=== PATIENT | female | born 1995 | race Caucasian/White ===

== ENCOUNTER 2019-08-18 09:46 | Outpatient (CLI) | payer OTHER ==
--- NOTE | 2019-08-18 13:07 | ULT ---
OB ULTRASOUND COMPLETE: Date: 08/18/2019 HISTORY: Anatomy. Normal second trimester evaluation. FINDINGS: Single, viable intrauterine fetus is noted in breech presentation. The placenta is anterior. Amniotic fluid is within normal limits. heart rate of 146 bpm. Cervical length 3.8 cm. Anatomy: Visualized brain, 4 chamber heart, 3 vessel cord, stomach, bladder, kidneys, spine, and extremi ty regions are unremarkable. Biometry: BPD: 4.7 cm, 20 weeks/2 days HC: 18.3 cm, 20 weeks/5 days AC: 15.1 cm, 20 weeks/3 days FL: 3.4 cm, 20 weeks/4 days IMPRESSION: 1. Single, viable intrauterine fetus at 20 weeks and 4 days. 2. ANGELINE of 01/01/2020. 3. weight of 352 gm. POS: [facility]
== END 2019-08-18 09:47 | disposition home or self-care (01) ==
LOC: BICULT 09:46
PROVIDERS: ATTEND Family Medicine
DX: Z34.82 Encounter for supervision of other normal pregnancy, second trimester (principal); Z3A.20 20 weeks gestation of pregnancy
CPT/HCPCS: 76805

== ENCOUNTER 2019-11-22 11:25 | Day surgery (SDC) | payer OTHER ==
[2019-11-22 11:56] VITALS: BMI 32.3
[2019-11-22 12:18] VITALS: BP 128/72; TEMP 98.5
--- NOTE | 2019-11-22 13:06 | ULT ---
ULTRASOUND BIOPHYSICAL PROFILE: HISTORY: distress FINDINGS: A single live intrauterine gestation is seen. heart rate:152bpm OBED: 5.3 cm Placenta: Anterior without placenta previa OB biophysical profile: tone: 2 breathin movements: 2 Amniotic fluid: 2 IMPRESSION: 1. The ultrasound biophysical profile score is 8 out of 8. 2. Oligohydramnios.
== END 2019-11-22 15:15 | disposition home health service (06) ==
LOC: L&D/OP 11:25
PROVIDERS: ATTEND Family Medicine
DX: O41.00X0 Oligohydramnios, unspecified trimester, not applicable or unspecified (principal); Z3A.00 Weeks of gestation of pregnancy not specified
CPT/HCPCS: 76819; 99282

== ENCOUNTER 2019-11-29 09:23 | Outpatient (CLI) | payer OTHER ==
[2019-11-30 12:10] LABS: SARS-CoV-2 MS2 Positive; SARS-CoV-2 N Gene Negative; SARS-CoV-2 S Gene Negative; SARS-CoV-2 by NAA Not Detected (NotDetected); SARS-CoV-2 orf1ab Negative
== END 2019-11-29 09:24 | disposition home or self-care (01) ==
LOC: LABSCS 09:23
PROVIDERS: ATTEND Family Medicine
DX: Z01.812 Encounter for preprocedural laboratory examination (principal); Z11.59 Encounter for screening for other viral diseases
CPT/HCPCS: 87635; U0003

== ENCOUNTER 2019-12-01 19:30 | Inpatient (IN) | payer OTHER ==
[~2019-12-01 19:30] MED LIST: Bupivacaine/Epinephrine 0.25% 30 ML VIAL ONE
[2019-12-01 20:49] VITALS: BMI 32.5
[2019-12-01] MEDS ORDERED: hydrALAZINE 20 MG/ML VIAL SLOW IVP PRN (21:09)
[2019-12-01] MEDS ORDERED: Ondansetron PF 4 MG/2 ML Vial IVP PRN (21:09)
[2019-12-01] MEDS ORDERED: Carboprost 250 MCG/ML AMP IM PRN (21:09)
[2019-12-01] MEDS ORDERED: Methylergonovine 0.2 MG/ML VIAL IM PRN (21:09)
[2019-12-01] MEDS ORDERED: HYDROcodone/Acetaminophen 5/325 mg Tablet PO PRN (21:09)
[2019-12-01] MEDS ORDERED: Misoprostol 200 MCG TAB PR PRN (21:09)
[2019-12-01] MEDS ORDERED: Lidocaine 1% (PF) 30 ML VIAL SC PRN (21:09)
[2019-12-01] MEDS ORDERED: Promethazine HCl 25 MG/ML VIAL IM PRN (21:09)
[2019-12-01] MEDS ORDERED: Diphenoxylate HCl/Atropine Tablet PO PRN (21:09)
[2019-12-01] MEDS ORDERED: Ibuprofen 800 MG TAB PO PRN (21:09)
[2019-12-01] MEDS ORDERED: Butorphanol Tartrate 1 MG/ML VIAL SLOW IVP PRN (21:09)
[2019-12-01] MEDS ORDERED: NS w/ Oxytocin 10 units 500 ML IV SCH ×2 (21:15)
[2019-12-01] MEDS: Lactated Ringer's 1,000 ML IV SCH ×2 (21:54→22:49)
[2019-12-01] MEDS: Misoprostol 100 MCG TAB PO SCH (21:54)
[2019-12-01 22:00] LABS: Mean Corpuscular HGB CONC 32.4 g/dL (32.0-36.0); Mean Corpuscular Hemoglobin 25.1 pg (27.0-31.0); Mean Corpuscular Volume 77.6 fL (78.0-98.0); Mean Platelet Volume 7.8 fL (7.4-10.4); Platelet Count 496 thou/uL (130-400); RBC Distribution Width 14.8 % (11.5-14.5); Red Blood Cell (RBC) Count 3.98 mill/uL (4.20-5.40)
[2019-12-01 22:28] LABS: Syphilis Antibody Nonreactive (Nonreactive); Syphilis Antibody Index 0.04 S/CO (<1.00 Non-Reactive)
[2019-12-01 23:05] LABS: HBSAg Index 0.12 S/CO (0-0.99); Hep B Surf Ag Non-Reactive S/CO (NonReactive)
[2019-12-02] MEDS: Misoprostol 100 MCG TAB PO SCH ×2 (01:15→16:29)
[2019-12-02] MEDS ORDERED: Fentanyl 4 mcg/Bup 0.1% Cadd 100 ML ONE (08:39)
[2019-12-02] MEDS ORDERED: diphenhydrAMINE 50 MG/ML VIAL IVP PRN (09:39)
[2019-12-02] MEDS ORDERED: Acetaminophen 325 MG TAB PO PRN (09:39)
[2019-12-02] MEDS ORDERED: Ondansetron PF 4 MG/2 ML Vial IVP PRN ×2 (09:39→16:13)
[2019-12-02] MEDS ORDERED: Promethazine HCl 25 MG/ML VIAL IM PRN (09:39)
[2019-12-02] MEDS ORDERED: EPHEDRINE 25 MG/5 ML SYRINGE SLOW IVP PRN (09:39)
[2019-12-02] MEDS ORDERED: Lactated Ringer's 500 ML IV PRN (09:39)
[2019-12-02] MEDS ORDERED: Naloxone HCl 0.4 mg/ml Vial IVP PRN ×2 (09:39)
[2019-12-02] MEDS ORDERED: Communication Order-Pharmacy FS PRN (09:45)
[2019-12-02] MEDS ORDERED: Fentanyl 4 mcg/Bupivacaine 0.1% Cassette 100 ML EPIDURAL SCH (09:45)
[2019-12-02] MEDS: Lactated Ringer's 1,000 ML IV SCH (10:05)
[2019-12-02] MEDS: NS / Oxytocin 40 units/1000ml 1,000 ML IV PRN ×2 (13:05→14:30)
[2019-12-02] MEDS ORDERED: HYDROcodone/Acetaminophen 5/325 mg Tablet PO PRN (16:13)
[2019-12-02] MEDS ORDERED: Milk Of Magnesia 30 ML UDCUP PO PRN (16:13)
[2019-12-02] MEDS ORDERED: Bisacodyl 10 MG SUPP PR PRN (16:13)
[2019-12-02] MEDS ORDERED: Lanolin Ointment 7 GM TUBE TOP PRN (16:13)
[2019-12-02] MEDS ORDERED: NS / Oxytocin 40 units/1000ml 1,000 ML IV SCH (16:13)
[2019-12-02] MEDS ORDERED: hydrALAZINE 20 MG/ML VIAL SLOW IVP PRN (16:13)
[2019-12-02] MEDS ORDERED: diphenhydrAMINE 25 MG CAP PO PRN (16:13)
[2019-12-02] MEDS: Ferrous Sulfate 325 MG TAB PO SCH (16:30)
[2019-12-02] MEDS: HYDROcodone/Acetaminophen 5/325 mg Tablet PO PRN (16:43)
[2019-12-02] MEDS: Ibuprofen 800 MG TAB PO SCH (22:25)
[2019-12-02] MEDS: Docusate Calcium (SURFAK) 240 MG CAP PO SCH (22:25)
[2019-12-03] MEDS: Ibuprofen 800 MG TAB PO SCH ×3 (05:20→21:59)
[2019-12-03] MEDS ORDERED: Prenatal Vitamin 1 TAB PO SCH (09:00)
[2019-12-03] MEDS ORDERED: Adacel (T-DAP) 0.5 ML SYRINGE IM ONE (09:00)
[2019-12-03] MEDS: Docusate Calcium (SURFAK) 240 MG CAP PO SCH ×2 (10:02→22:00)
[2019-12-03] MEDS: HYDROcodone/Acetaminophen 5/325 mg Tablet PO PRN (10:03)
[2019-12-03] MEDS: Ferrous Sulfate 325 MG TAB PO SCH ×2 (10:45→15:55)
[2019-12-03 20:15] VITALS: BP 127/71; TEMP 98.5
[2019-12-04] MEDS: Ibuprofen 800 MG TAB PO SCH (05:11)
[2019-12-04] MEDS: HYDROcodone/Acetaminophen 5/325 mg Tablet PO PRN (14:19)
[2019-12-04] MEDS: Ferrous Sulfate 325 MG TAB PO SCH (14:19)
== END 2019-12-04 16:28 | disposition home or self-care (01) | DRG 807 ==
LOC: L&D 19:57 → 3SE 12-02 16:24
PROVIDERS: ADMIT Family Medicine; ATTEND Family Medicine
PROC: 3E0234Z Introduction of Serum, Toxoid and Vaccine into Muscle, Percutaneous Approach (ICD-10-PCS; principal; 2019-12-01)
PROC: 10E0XZZ Delivery of Products of Conception, External Approach (ICD-10-PCS; 2019-12-01)
PROC: 10907ZC Drainage of Amniotic Fluid, Therapeutic from Products of Conception, Via Natural or Artificial Opening (ICD-10-PCS; 2019-12-01)
DX: O80 Encounter for full-term uncomplicated delivery (principal); Z37.0 Single live birth; Z3A.36 36 weeks gestation of pregnancy
CPT/HCPCS: 36415; 51702; 85027; 86780; 86850; 86900; 86901; 87340; J2590

== ENCOUNTER 2020-11-09 11:26 | Emergency (ER) | payer OTHER ==
[2020-11-09 12:22] LABS: BHCG - Serum Negative (NEGATIVE); Pregs Control Background? CLEAR/WHITE (CLR/WHITE); Pregs Control Bar Appear? YES (CONTROL BAR)
== END 2020-11-09 12:40 | disposition home or self-care (01) ==
LOC: ERS 11:26
DX: S60.021A Contusion of right index finger without damage to nail, initial encounter (principal); S50.811A Abrasion of right forearm, initial encounter; F17.210 Nicotine dependence, cigarettes, uncomplicated; V89.2XXA Person injured in unspecified motor-vehicle accident, traffic, initial encounter
CPT/HCPCS: 36415; 84703

== ENCOUNTER 2023-06-06 09:56 | Outpatient (CLI) | payer OTHER | END 2023-06-06 09:57 | disposition home or self-care (01) | LOC: BICULT 09:56 | PROVIDERS: ATTEND Nurse Practitioner Family | DX: N63.23 Unspecified lump in the left breast, lower outer quadrant (principal); N63.13 Unspecified lump in the right breast, lower outer quadrant; M47.816 Spondylosis without myelopathy or radiculopathy, lumbar region; M54.41 Lumbago with sciatica, right side | CPT/HCPCS: 72100; 76642 ==